=== PATIENT | male | born 1975 | race African-American/Black ===

== ENCOUNTER 2019-04-08 07:30 | Emergency (ER) | payer OTHER ==
[2019-04-08] MEDS ORDERED: CYCLOBENZAPRINE 10 MG TAB ONE (08:11)
[2019-04-08] MEDS ORDERED: KETOROLAC 30 MG/ML INJ ONE (08:11)
--- NOTE | 2019-04-08 08:19 | RAD REPORT ---
EXAM DESCRIPTION: CT - Stone Protocol - 04/08/2019 7:54 am CLINICAL HISTORY: Flank pain. right flank pain COMPARISON: No comparisons TECHNIQUE: Axial images were obtained without oral or IV contrast. Lack of contrast limits solid org an and vascular assessment. The [id number] spans the entirety of the system partially obscuring uppermost abdomen and lung bases. Coronal reformatted images were obtained and reviewed. All CT scans are performed using dose optimization technique as appropriate and may include automated exposure control or mA/KV adjustment according to patient size. FINDINGS: The lower lung [place] are clear. Imaged portions of the liver and spleen show no suspicious findings on non-contrast imaging. The panc reas and adrenal glands are normal. No pathologic lymphadenopathy in the abdomen or pelvis. Small punctate calculi are seen in the inferior calices of the right kidney. No hydronephrosis or ure ter stone on the right identified. Several left renal cysts are suspected, although assessment is mederos ited due to lack of contrast material. No significant left-sided renal calculus or hydronephrosis. No bowel obstruction, free air, free fluid or abscess. Normal appendix noted.Sigmoid diverticulosis c noni without diverticulitis. No significant bony abnormality. IMPRESSION: Punctate inferior right renal calculi. No hydronephrosis.
[2019-04-08 08:24] LABS: Absolute Lymphocytes (CBC) 2.1 K/uL (0.7-4.9); Absolute Monocytes 0.7 K/uL (0.1-1.3); Absolute Neutrophil 5.8 K/uL (1.8-8.0); Basophils % 0.7 % (0-1.3); Eosinophils % 1.3 % (0-4.4); Hematocrit 41.6 % (39.6-49.0); Lymphocytes % 23.8 % (15.3-44.8); MPV 7.7 fL (7.6-11.3); Monocytes % 7.8 % (3.3-12.3); RBC Red Blood Cell Count 4.27 M/uL (4.33-5.43)
[2019-04-08 08:37] LABS: ALT/SGPT 20 U/L (12-78); AST/SGOT 15 U/L (15-37); Albumin 3.6 g/dL (3.4-5.0); Alkaline Phosphatase 90 U/L (45-117); BUN Blood Urea Nitrogen 4 mg/dL (7-18); Bicarbonate 27 mmol/L (21-32); Bilirubin Direct < 0.1 mg/dL (0-0.2); Bilirubin Total 0.2 mg/dL (0.2-1.0); Glucose Level 96 mg/dL (74-106); Lipase 172 U/L (73-393); Potassium 3.7 mmol/L (3.5-5.1); Protein, Total 7.6 g/dL (6.4-8.2); Sodium Level 144 mmol/L (136-145)
[2019-04-08 08:39] LABS: Urine Amorphous Sediment 1+ /HPF (NONE SEEN); Urine Bacteria NONE SEEN /HPF (NONE SEEN); Urine Culture Reflex Order REFLEXED; Urine Mucus LIGHT /HPF (NONE SEEN); Urine RBC <5 /HPF (NONE SEEN)
[2019-04-08 08:40] LABS: Urine Blood NEGATIVE (NEG); Urine Glucose NEGATIVE (NEG); Urine Protein NEGATIVE (NEG)
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
--- NOTE | 2019-04-08 08:57 | ER ---
Nurse's Notes [facility] Name: Justo Jain Age: 44 yrs Sex: Male : 1975 Arrival Date: 04/08/2019 Time: 07:34 Bed 18 Private MD: Diagnosis: Nephrolithiasis;Muscle spasm of back Presentation: 04/08 07:40 Presenting complaint: Patient states: i have this back pain for a year now on and off hj but this time its getting worse, denies blood in urine, denies burning urination, denies F/C; denies N/V; reports cough, denies SOB;. 07:40 Transition of care: patient was not received from another setting of care. Onset of hj symptoms was April 08, 2019. Risk Assessment: Do you want to hurt yourself or someone else? Patient reports no desire to harm self or others. Initial Sepsis Screen: Does the patient meet any 2 criteria? No. Patient's initial sepsis screen is negative. Does the patient have a suspected source of infection? No. Patient's initial sepsis screen is negative. Care prior to arrival: None. 07:40 Method Of Arrival: Ambulatory 07:40 Acuity: TRAMAINE 3 hj Triage Assessment: 07:40 General: Appears in no apparent distress. uncomfortable, Behavior is calm, cooperative, hj appropriate for age. Pain: Complains of pain in right mid back Pain radiates to abdomen. 07:40 EENT: No signs and/or symptoms were reported regarding the EENT system. Neuro: Level of hj Consciousness is awake, alert, obeys commands, Oriented to person, place, time, situation, Appropriate for age. Cardiovascular: Denies chest pain, Capillary refill < 3 seconds Patient's skin is warm and dry. Respiratory: Reports cough that is Airway is patent Respiratory effort is even, unlabored, Respiratory pattern is regular, symmetrical, Breath sounds are clear. GI: No signs and/or symptoms were reported involving the gastrointestinal system. : No signs and/or symptoms were reported regarding the genitourinary system. Derm: No signs and/or symptoms reported regarding the dermatologic system. Musculoskeletal: Reports pain in right mid back. Historical: - Allergies: 07:40 No Known Allergies; hj - Home Meds: 07:40 venlafaxine oral oral [Active]; Risperdal Oral [Active]; Trazodone Oral [Active]; hj - PMHx: 07:40 R sided paralysis; hj - PSHx: 07:40 neck; hj - Immunization history:: Adult Immunizations up to date. - Social history:: Smoking status: Patient/guardian denies using tobacco, Patient/guardian denies using alcohol. - Family history:: not pertinent. - Ebola Screening: : Patient negative for fever greater than or equal to 101.5 degrees Fahrenheit, and additional compatible Ebola Virus Disease symptoms Patient denies exposure to infectious person Patient denies travel to an Ebola-affected area in the 21 days before illness onset. - Hospitalizations: : No recent hospitalization is reported. Screenin:40 Abuse screen: Denies threats or abuse. Denies injuries from another. Nutritional hj screening: No deficits noted. Tuberculosis screening: No symptoms or risk factors identified. 07:40 Fall Risk Secondary diagnosis (15 points) impaired mobility. hj Assessment: 07:40 Reassessment: see triage for assessment;. hj 07:50 Reassessment: Patient and/or family updated on plan of care and expected duration. Pain hj level reassessed. Patient is alert, oriented x 3, equal unlabored respirations, skin warm/dry/pink. wheeled to CT for CT stone protocol;. 09:20 Reassessment: pt for D/C; instructions given;. hj Vital Signs: 07:40 BP 139 / 97; Pulse 66; Resp 18; Temp 97.9(O); Pulse Ox 97% on R/A; Weight 79.38 kg; hj Height 5 ft. 10 in. (177.80 cm); Pain 8/10; 08:30 BP 138 / 92; Pulse 68; Resp 18; Pulse Ox 100% on R/A; hj 09:21 BP 135 / 90; Pulse 65; Resp 18; Pulse Ox 100% on R/A; hj 07:40 Body Mass Index 25.11 (79.38 kg, 177.80 cm) ED Course: 07:34 Patient arrived in ED. mr 07:34 Star Huntley MD is Attending Physician. rn 07:40 Arm band placed on left wrist. hj 07:40 Patient has correct armband on for positive identification. Placed in gown. Bed in low hj position. Call light in reach. Side rails up X2. 07:43 Kyler, Giovani, RN is Primary Nurse. hj 07:[address] via wheelchair. vm2 07:47 Triage completed. hj 07:53 CT completed. Patient tolerated procedure well. Patient moved back from CT. 2 07:54 CT Stone Protocol In Process Unspecified. EDND 08:05 Initial lab(s) drawn, by me, sent to lab. Urine collected: clean catch specimen, chadd hj colored. Inserted saline lock: 22 gauge in left forearm, using aseptic technique. Blood collected. 09:20 No provider procedures requiring assistance completed. IV discontinued, intact, hj bleeding controlled, No redness/swelling at site. Pressure dressing applied. Administered Medications: 07:45 Drug: Flexeril 10 mg Route: PO; hj 08:30 Follow up: Response: No adverse reaction; Pain is decreased 08:05 Drug: TORadol - Ketorolac 15 mg Route: IVP; Site: left forearm; hj 08:30 Follow up: Response: No adverse reaction; Pain is decreased Outcome: 08:57 Discharge ordered by . rn 09:20 Discharged to home ambulatory. 09:20 Condition: stable 09:20 Discharge instructions given to patient, Instructed on discharge instructions, follow up and referral plans. medication usage, Demonstrated understanding of instructions, follow-up care, medications, Prescriptions given X 1. 09:22 Patient left the ED. Signatures: Dispatcher [employer] Kassidy Medeiros Roman, MD MD rn Joaquin, Henry, RN RN hj McGuire, [facility]
== END 2019-04-08 09:22 | disposition home or self-care (01) ==
LOC: ER 07:30
DX: N20.0 Calculus of kidney (principal); M62.830 Muscle spasm of back
CPT/HCPCS: 36415; 74176; 76377; 80048; 80076; 81003; 81015; 83690; 85025; 87086; 87088

== ENCOUNTER 2019-11-27 11:15 | Emergency (ER) | payer OTHER ==
--- OUTSIDE RECORDS SUMMARY | 2019-11-27 11:17 | XMS REPORT ---
:1975 [facility] Address [address] [place] [address] Care Team Providers Name Role Phone Unavailable Unavailable Unavailable Problems This patient has no known problems. Allergies, Adverse Reactions, Alerts This patient has no known allergies or adverse reactions. Medications This patient has no known medications. Results Test Description Test Time Test Comments Text Results Atomic Results Result Comments KNEE 3 VIEWS 2018-07-22 07:36:00 [place] [id number] IMAGING REPORTPatient Name: Cleo DOUGHERTY of Service: [id number]: 43 Sex: M Order #: [id number] Room: ERSDOB: 1975 X-Ray Number: [id number] Record Number: [id number] Hospital Number: [id number] Physician: Erna GUIDO Physician: Florina ENCISO knee.History: Pain.Technique: 3 views the right knee were reviewed.Findings:The right knee joint is intact. There is no fracture or bony malalignment.There is a significant sized joint effusion noted.Impression:Large right knee joint effusion.Electronically Signed By: Israel Ndiaye M.D., 07/22/2018 7:33 AMLegally authenticated by OSCAR Tolbert 2018-07-22 07:33:53 ABDOMEN 1 VIEW 2018-07-22 07:35:00 [place] [id number] IMAGING REPORTPatient Name: Cleo DOUGHERTY of Service: [id number]: 43 Sex: M Order #: [id number] Room: ERSDOB: 1975 X-Ray Number: [id number] Record Number: [id number] Hospital Number: [id number] Physician: Erna GUIDO Physician: KAYLA ENCISOUB:History: Abdomen pain.Technique: 2 AP abdomen and pelvis projection obtained supine.Findings:The bowel gas pattern is nonobstructive.There are scattered fecal material throughout the colon.There is no evidence of free air.The osseous structures and soft tissues are unremarkable.There are no suspicious or abnormal calcification seen.Impression:Unremarkable abdomen projections.Electronically Signed By: Israel Ndiaye M.D., 07/22/2018 7:32 AMLegally authenticated by OSCAR Tolbert 2018-07-22 07:32:58 ELBOW COMPLETE 2018-07-22 07:35:[address] [id number] IMAGING REPORTPatient Name: Cleo DOUGHERTY of Service: [id number]: 43 Sex: M Order #: [id number] Room: [facility]: 1975 X-Ray Number: [id number] Record Number: [id number] Hospital Number: [id number] Physician: Erna GUIDO Physician: Florina ENCISO elbow.History: Pain.Technique: 4 views of right elbow were reviewed.Findings:The right elbow joint is intact without fracture. There is normalalignment. There is no obvious elbow joint effusion seen.Impression:Unremarkable right elbow views.Electronically Signed By: Israel Ndiaye M.D., 07/22/2018 7:33 AMLegally authenticated by OSCAR Tolbert 2018-07-22 07:33:23
--- NOTE | 2019-11-27 12:23 | RAD REPORT ---
EXAM DESCRIPTION: USExtremity Venous Uni Ltd11/27/2019 12:13 pm CLINICAL HISTORY: left leg pain and swelling. COMPARISON: None. FINDINGS: Left common femoral, superficial femoral, popliteal and posterior tibial veins are compre ssible and demonstrate augmentation. Doppler demonstrates good flow. IMPRESSION: No evidence of deep venous thrombosis involving the left lower extremity.
[2019-11-27 12:37] LABS: Absolute Lymphocytes (CBC) 2.6 K/uL (0.7-4.9); Hematocrit 40.2 % (39.6-49.0); Lymphocytes % 38.1 % (15.3-44.8); MPV 7.7 fL (7.6-11.3); RBC Red Blood Cell Count 4.31 M/uL (4.33-5.43)
[2019-11-27 12:45] LABS: Protime INR 1.04
[2019-11-27 12:57] LABS: ALT/SGPT 36 U/L (12-78); AST/SGOT 21 U/L (15-37); Albumin 3.8 g/dL (3.4-5.0); Alkaline Phosphatase 104 U/L (45-117); BUN Blood Urea Nitrogen 6 mg/dL (7-18); Bicarbonate 26 mmol/L (21-32); Bilirubin Direct < 0.1 mg/dL (0-0.2); Bilirubin Total 0.3 mg/dL (0.2-1.0); Glucose Level 80 mg/dL (74-106); Magnesium 2.4 mg/dL (1.8-2.4); NT PRO-BNP 110 pg/mL (<125); Potassium 3.8 mmol/L (3.5-5.1); Protein, Total 8.1 g/dL (6.4-8.2); Sodium Level 141 mmol/L (136-145); Troponin (Emerg Dept Use Only) < 0.02 ng/mL (0.0-0.045)
[2019-11-27] MEDS ORDERED: KETOROLAC 30 MG/ML INJ ONE (13:26)
[2019-11-27] MEDS ORDERED: lisinopriL 20 MG TAB ONE (13:26)
--- NOTE | 2019-11-27 13:47 | EKG ---
Test Date: 2019-11-27 Test Time: 11:38:14 Law Office Assistant: CARLA MEASUREMENT RESULTS: Intervals: Rate: 74 LA: 152 QRSD: 88 QT: 378 QTc: 419 [place]: P: 73 LA: 152 QRS: 66 T: 47 INTERPRETIVE STATEMENTS: Normal sinus rhythm Normal ECG No previous ECG available for comparison Electronically Signed On 11-27-19 13:46:44 GEAR MACHINIST by Paul Briceno
--- NOTE | 2019-11-27 14:25 | RAD REPORT ---
EXAM DESCRIPTION: RAD - Chest Single View - 11/27/2019 2:02 pm CLINICAL HISTORY: Lower extremity swelling, hypertension, abnormal EKG COMPARISON: None. TECHNIQUE: AP portable chest image was obtained 1244 hours . FINDINGS: Minimal stranding at the left lung base. Patient has a mild interstitial pattern as a base line. No consolidation or mass. No significant failure or volume overload. Heart and vasculature are normal. No measurable pleural effusion and no pneumothorax. No acute bony abnormality seen. No acute aortic findings suspected. IMPRESSION: Minimal interstitial stranding changes suspected to be baseline. No mass, consolidation or significant failure finding.
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
--- NOTE | 2019-11-27 14:34 | EDPHYS ---
Physician Documentation [facility] Name: Justo Jain Age: 44 yrs Sex: Male : 1975 Arrival Date: 11/27/2019 Time: 11:18 Bed 26 Private MD: ED Physician Atul Soto HPI: 11/27 19:06 This 44 yrs old Black Male presents to ER via Ambulatory with complaints of Leg Pain. kdr 19:06 The patient presents with pain, that is acute, tenderness, Left posterior thigh. The kdr complaints affect the left hamstring. Context: The problem was sustained at home, resulted from an unknown cause, the patient can fully bear weight, the patient is able to ambulate, with mild difficulty, Problem is a result from a previous injury: No. 19:08 Onset: The symptoms/episode began/occurred gradually, 1 week(s) ago. Modifying factors: kdr The symptoms are alleviated by nothing. the symptoms are aggravated by movement, weight bearing. Associated signs and symptoms: Pertinent positives: HTN, left leg pain. Treatment prior to arrival includes: over the counter medications, NSAIDS. Severity of symptoms: At their worst the symptoms were mild, in the emergency department the symptoms are unchanged. The patient has not experienced similar symptoms in the past. The patient has not recently seen a physician. Historical: - Allergies: :26 No Known Allergies; ss - Home Meds: 11:26 venlafaxine Oral [Active]; trazodone 100 mg oral tab 2 tabs nightly [Active]; Risperdal ss 3 mg oral tab 1 tab nightly [Active]; - PMHx: 11:26 Depression; R sided paralysis; ss - PSHx: 11:26 Neck; ss - Immunization history:: Flu vaccine is not up to date. - Social history:: Smoking status: Patient uses tobacco products, denies chronic smoking, but will smoke occasionally. - Ebola Screening: : Patient denies exposure to infectious person Patient denies travel to an Ebola-affected area in the 21 days before illness onset. ROS: 19:08 Constitutional: Negative for fever, chills, and weight loss, Eyes: Negative for injury, kdr pain, redness, and discharge, ENT: Negative for injury, pain, and discharge, Neck: Negative for injury, pain, and swelling, Cardiovascular: Negative for chest pain, palpitations, and edema, Respiratory: Negative for shortness of breath, cough, wheezing, and pleuritic chest pain, Abdomen/GI: Negative for abdominal pain, nausea, vomiting, diarrhea, and constipation, Back: Negative for injury and pain, : Negative for injury, bleeding, discharge, and swelling, Skin: Negative for injury, rash, and discoloration, Neuro: Negative for headache, weakness, numbness, tingling, and seizure activity. Psych: Negative for depression, anxiety, suicide ideation, homicidal ideation, and hallucinations, Allergy/Immunology: Negative for hives, rash, and allergies, Endocrine: Negative for neck swelling, polydipsia, polyuria, polyphagia, and marked weight changes, Hematologic/Lymphatic: Negative for swollen nodes, abnormal bleeding, and unusual bruising. 19:08 MS/extremity: Positive for pain, tenderness, of the left hamstring. Exam: 11:46 ECG was reviewed by the Attending Physician. kdr 19:08 Constitutional: This is a well developed, well nourished patient who is awake, alert, kdr and in no acute distress. Head/Face: Normocephalic, atraumatic. Eyes: Pupils equal round and reactive to light, extra-ocular motions intact. Lids and lashes normal. Conjunctiva and sclera are non-icteric and not injected. Cornea within normal limits. Periorbital areas with no swelling, redness, or edema. Neck: Trachea midline, no thyromegaly or masses palpated, and no cervical lymphadenopathy. Supple, full range of motion without nuchal rigidity, or vertebral point tenderness. No Meningismus. Chest/axilla: Normal chest wall appearance and motion. Nontender with no deformity. No lesions are appreciated. Cardiovascular: Regular rate and rhythm with a normal S1 and S2. No gallops, murmurs, or rubs. Normal PMI, no JVD. No pulse deficits. Respiratory: Lungs have equal breath sounds bilaterally, clear to auscultation and percussion. No rales, rhonchi or wheezes noted. No increased work of breathing, no retractions or nasal flaring. Abdomen/GI: Soft, non-tender, with normal bowel sounds. No distension or tympany. No guarding or rebound. No evidence of tenderness throughout. Back: No spinal tenderness. No costovertebral tenderness. Full range of motion. Skin: Warm, dry with normal turgor. Normal color with no rashes, no lesions, and no evidence of cellulitis. MS/ Extremity: Pulses equal, no cyanosis. Neurovascular intact. Full, normal range of motion. Neuro: Awake and alert, GCS 15, oriented to person, place, time, and situation. Cranial nerves II-XII grossly intact. Motor strength 5/5 in all extremities. Sensory grossly intact. Cerebellar exam normal. Normal gait. Psych: Awake, alert, with orientation to person, place and time. Behavior, mood, and affect are within normal limits. Vital Signs: 11:26 BP 164 / 110; Pulse 80; Resp 16; Temp 97.4(TE); Pulse Ox 98% on R/A; Weight 83.91 kg; ss Height 5 ft. 11 in. (180.34 cm); Pain 5/10; 12:35 BP 166 / 115; Pulse 73; Resp 18; Pulse Ox 99% on R/A; Pain 5/10; em 13:21 BP 153 / 112; Pulse 73; Resp 17 S; Pulse Ox 99% on R/A; ca1 14:30 BP 158 / 122; Pulse 68; Resp 17 S; Pulse Ox 100% ; ca1 11:26 Body Mass Index 25.80 (83.91 kg, 180.34 cm) ss MDM: 14:31 Patient medically screened. kdr 19:08 Data reviewed: vital signs, nurses notes, lab test result(s), radiologic studies. kdr Counseling: I had a detailed discussion with the patient and/or guardian regarding: the historical points, exam findings, and any diagnostic results supporting the discharge/admit diagnosis, lab results, radiology results, the need for outpatient follow up. ED course: The patient improved with the interventions given and was happy with the plan for discharge and follow-up. 11/27 11:43 Order name: Basic Metabolic Panel; Complete Time: 13:18 kdr 11/27 11:43 Order name: CBC with Diff; Complete Time: 12:56 kdr 11/27 11:43 Order name: LFT's; Complete Time: 13:18 kdr 11/27 11:43 Order name: Magnesium; Complete Time: 13:18 kdr 11/27 11:43 Order name: NT PRO-BNP; Complete Time: 13:18 kdr 11/27 11:43 Order name: PT-INR; Complete Time: 12:56 kdr 11/27 11:43 Order name: Troponin (emerg Dept Use Only); Complete Time: 13:18 kdr 11/27 11:43 Order name: XRAY Chest (1 view) kdr 11/27 11:43 Order name: EKG; Complete Time: 11:44 kdr 11/27 11:43 Order name: Cardiac monitoring; Complete Time: 11:46 kdr 11/27 11:43 Order name: EKG - Nurse/Tech; Complete Time: 11:46 kdr 11/27 11:44 Order name: US Extremity Venous Unilateral Ltd; Complete Time: 12:56 kdr 11/27 11:43 Order name: IV Saline Lock; Complete Time: 11:46 kdr 11/27 11:43 Order name: Labs collected and sent; Complete Time: 11:47 kdr 11/27 11:43 Order name: O2 Per Protocol; Complete Time: 11:47 kdr 11/27 11:43 Order name: O2 Sat Monitoring; Complete Time: 11:47 kdr EC:46 Rate is 74 beats/min. Rhythm is regular, Normal Sinus Rhythm with No ectopy. QRS [place] kdr is Normal. MO interval is normal. QRS interval is normal. QT interval is normal. Clinical impression: Normal ECG. Administered Medications: 13:29 Drug: Lisinopril 20 mg Route: PO; em 14:10 Follow up: Response: No adverse reaction; Blood pressure is unchanged em 13:29 Drug: TORadol - Ketorolac 15 mg Route: IVP; Site: right antecubital; iw 14:10 Follow up: Response: No adverse reaction; Marked relief of symptoms; Pain is decreased em Disposition: 11/27/19 14:31 Discharged to Home. Impression: Strain of muscle, fascia and tendon of the posterior muscle group at thigh level, left thigh. - Condition is Stable. - Discharge Instructions: Hypertension, Musculoskeletal Pain. - Prescriptions for ketorolac 10 mg Oral tablet - take 1 tablet by ORAL route every 4-6 hours not to exceed 40 mg in 24hrs; 16 tablet. Lisinopril 20 mg Oral Tablet - take 1 tablet by ORAL route once daily; 20 tablet. - Medication Reconciliation Form, Thank You Letter form. - Follow up: Private Physician; When: 2 - 3 days; Reason: If symptoms return, Further diagnostic work-up, Recheck today's complaints, Continuance of care, Re-evaluation by your physician. - Problem is new. - Symptoms have improved. Signatures: Dispatcher [employer] EDAtul Stern MD MD kdr Munoz, Edgar, RELAY SHOP TESTER RELAY SHOP TESTER em Bernarda Cook RN RN iw Maritza Ramirez RN RN ss Corrections: (The following items were deleted from the chart) 15:07 14:31 11/27/2019 14:31 Discharged to Home. Impression: Strain of muscle, fascia and em tendon of the posterior muscle group at thigh level, left thigh. Condition is Stable. Forms are Medication Reconciliation Form, Thank You Letter, Antibiotic Education, Prescription Opioid Use. Follow up: Private Physician; When: 2 - 3 days; Reason: If symptoms return, Further diagnostic work-up, Recheck today's complaints, Continuance of care, Re-evaluation by your physician. Problem is new. Symptoms have improved. kdr
[2019-11-27 16:08] VITALS: TEMP 97.4
[2019-11-27 16:12] VITALS: BP 158/122; O2SAT 100
== END 2019-11-27 15:07 | disposition home or self-care (01) ==
LOC: ER 11:15
DX: S76.312A Strain of muscle, fascia and tendon of the posterior muscle group at thigh level, left thigh, initial encounter (principal); F32.9 Major depressive disorder, single episode, unspecified; Z72.0 Tobacco use
CPT/HCPCS: 36415; 71045; 80048; 80076; 83735; 83880; 84484; 85025; 85610; 93005; 93971; 96374; 99284

== ENCOUNTER 2019-12-29 16:58 | Observation (INO) | payer OTHER ==
--- OUTSIDE RECORDS SUMMARY | 2019-12-29 17:00 | XMS REPORT ---
:1975 [facility] [address] [place] [address] Care Team Providers Name Role Phone Unavailable Unavailable Unavailable Problems This patient has no known problems. Allergies, Adverse Reactions, Alerts This patient has no known allergies or adverse reactions. Medications This patient has no known medications. Results Test Description Test Time Test Comments Text Results Atomic Results Result Comments KNEE 3 VIEWS 2018-07-22 07:36:00 [place] [id number] IMAGING REPORTPatient Name: Cleo DOUGHERTY of Service: [id number]: 43 Sex: M Order #: [id number] Room: ERSDOB: 1975 X-Ray Number: [id number] Record Number: [id number] Hospital Number: [id number] Physician: Erna GUIDO Physician: Florina ENCISO knee.History: Pain.Technique: 3 views the right knee were reviewed.Findings:The right knee joint is intact. There is no fracture or bony malalignment.There is a significant sized joint effusion noted.Impression:Large right knee joint effusion.Electronically Signed By: Israel Ndiaye M.D., 07/22/2018 7:33 AMLegally authenticated by OCSAR Tolbert 2018-07-22 07:33:53 ABDOMEN 1 VIEW 2018-07-22 07:35:00 [place] [id number] IMAGING REPORTPatient Name: Cleo DOUGHERTY of Service: [id number]: 43 Sex: M Order #: [id number] Room: ERSDOB: 1975 X-Ray Number: [id number] Record Number: [id number] Hospital Number: [id number] Physician: Erna GUIDO Physician: KAYLA ENCISOUB:History: Abdomen [...] Tolbert 2018-07-22 07:32:58 ELBOW COMPLETE 2018-07-22 07:35:[address] [id number] IMAGING REPORTPatient Name: Cleo DOUGHERTY of Service: [id number]: 43 Sex: M Order #: [id number] Room: [facility]: 1975 X-Ray Number: [id number] Record Number: [id number] Hospital Number: [id number] Physician: Erna GUIDO Physician: Florina ENCISO elbow.History: Pain.Technique: 4 views of right elbow were reviewed.Findings:The right elbow joint is intact without fracture. There is normalalignment. There is no obvious elbow joint effusion seen.Impression:Unremarkable right elbow views.Electronically Signed By: Israel Ndiaye M.D., 07/22/2018 7:33 AMLegally authenticated by OSCAR Tolbert 2018-07-22 07:33:23
[2019-12-29] MEDS ORDERED: NA CHLORIDE 0.9% 1,000 ML ONE (17:16)
[2019-12-29 18:03] LABS: Absolute Lymphocytes (CBC) 1.6 K/uL (0.7-4.9); Basophils % 0.4 % (0-1.3); Hematocrit 40.6 % (39.6-49.0); MPV 8.4 fL (7.6-11.3); RBC Red Blood Cell Count 4.31 M/uL (4.33-5.43)
[2019-12-29 18:08] LABS: Protime INR 1.14
--- NOTE | 2019-12-29 18:30 | ER ---
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 Transition of care: patient was not received from another setting of care. Onset of symptoms was December 29, 2019 at 14:00. Risk Assessment: Do you want to hurt yourself or someone else? Patient reports desire/thoughts of hurting themselves or someone else. Provider notified. Initial Sepsis Screen: Does the patient meet any 2 criteria? No. Patient's initial sepsis screen is negative. Does the patient have a suspected source of infection? No. Patient's initial sepsis screen is negative. Care prior to arrival: None. 16:55 Method Of Arrival: Wheelchair bp 16:55 Acuity: TRAMAINE 2 bp Triage Assessment: 16:58 General: Appears in no apparent distress. comfortable, Behavior is cooperative, bp appropriate for age, drowsy. Pain: Denies pain. EENT: No deficits noted. Neuro: Level of Consciousness is awake, obeys commands, lethargic, Oriented to person, place, time, situation, Appropriate for age. Cardiovascular: No deficits noted. Respiratory: No deficits noted. GI: No signs and/or symptoms were reported involving the gastrointestinal system. : No signs and/or symptoms were reported regarding the genitourinary system. Derm: No deficits noted. Musculoskeletal: No deficits noted. Historical: - Allergies: 16:58 No Known Allergies; bp - Home Meds: 16:58 Risperdal 3 mg Oral tab 1 tab nightly [Active]; trazodone 100 mg Oral tab 2 tabs bp nightly [Active]; venlafaxine Oral [Active]; - PMHx: 16:58 Depression; R sided paralysis; bp - Immunization history:: Adult Immunizations unknown. - Coronavirus screen:: The patient has NOT traveled to [place], [place], or [place] in the past 14 days. The patient has NOT had contact with known/suspected case of Coronavirus? Proceed with normal triage procedures. - Social history:: Smoking status: unknown. - Ebola Screening: : No symptoms or risks identified at this time. Screenin:59 Abuse screen: Denies threats or abuse. Denies injuries from another. Nutritional bp screening: No deficits noted. Tuberculosis screening: No symptoms or risk factors identified. Fall Risk None identified. Assessment: 16:59 General: SEE TRIAGE NOTE. bp 17:36 Reassessment: PT SEEN BY HOSPITALIST. DISPO PENDING. bp 18:35 Reassessment: ICU ADMIT IN PROCESS. PER MD, PT NOT STABLE FOR ARRIVAL. bp 19:14 General: Appears in no apparent distress. comfortable, Behavior is calm, cooperative, jd3 appropriate for age, drowsy. 19:14 Pain: Denies pain. Neuro: Level of Consciousness is awake, alert, obeys commands, jd3 Oriented to person, place, time, situation. Cardiovascular: Denies chest pain, Capillary refill < 3 seconds Patient's skin is warm and dry. Respiratory: Airway is patent Respiratory effort is even, unlabored, Respiratory pattern is regular, symmetrical. GI: No signs and/or symptoms were reported involving the gastrointestinal system. Abdomen is round non-distended. : No signs and/or symptoms were reported regarding the genitourinary system. EENT: No signs and/or symptoms were reported regarding the EENT system. Derm: Skin is intact, Skin is dry, Skin is normal, Skin temperature is warm. Musculoskeletal: Circulation, motion, and sensation intact. Range of motion: intact in all extremities. 20:09 Reassessment: Patient appears in no apparent distress at this time. Patient and/or jd3 family updated on plan of care and expected duration. Pain level reassessed. Patient is alert, oriented x 3, equal unlabored respirations, skin warm/dry/pink. pt reminded of need for a urine sample. pt pulled IV out. site cleaned. no redness or swelling noted. 21:29 Reassessment: Patient appears in no apparent distress at this time. pt is aaox4, states fc he feels the need to vomit. pt educated with injestion of med vomiting is not a bad thing. no new medications ordered. 22:30 Reassessment: Patient appears in no apparent distress at this time. Patient and/or jd3 family updated on plan of care and expected duration. Pain level reassessed. Patient is alert, oriented x 3, equal unlabored respirations, skin warm/dry/pink. 23:45 Reassessment: Patient appears in no apparent distress at this time. Patient and/or jd3 family updated on plan of care and expected duration. Pain level reassessed. Patient is alert, oriented x 3, equal unlabored respirations, skin warm/dry/pink. pt to ICU with a nurse. Overdose: 17:00 Patient took \R\90 TABS 100 MG TRAZODONE. Overdose occurred 3-4 hours ago. bp Vital Signs: 17:00 BP 120 / 74; Pulse 95; Resp 15; Temp 98; Pulse Ox 99% ; Weight 79.38 kg; Height 5 ft. bp 10 in. (177.80 cm); 17:35 BP 96 / 66; Pulse 102; Resp 22; Pulse Ox 98% ; bp 18:30 BP 126 / 66; Pulse 86; Resp 16; Pulse Ox 100% on R/A; Pain 0/10; em1 18:35 BP 102 / 64; Pulse 88; Resp 17; Pulse Ox 100% ; bp 18:59 BP 123 / 81; Pulse 104; Resp 19; Pulse Ox 98% on R/A; Pain 0/10; em1 20:09 BP 147 / 85 LA Supine (auto/reg); Pulse 96 MON; Resp 17 S; Pulse Ox 99% on R/A; ds4 21:57 BP 99 / 69 LA Sitting (auto/reg); Pulse 102 MON; Resp 19; Pulse Ox 99% on R/A; ds4 17:00 Body Mass Index 25.11 (79.38 kg, 177.80 cm) bp ED Course: 16:55 Holland Almonte, RN is Primary Nurse. bp 16:57 Triage completed. bp 16:58 Arm band placed on. bp 16:59 Patient arrived in ED. em 16:59 Patient has correct armband on for positive identification. Placed in gown. Bed in low bp position. Call light in reach. Side rails up X2. coroner forensic technician on. Pulse ox on. NIBP on. 17:00 Atul Soto MD is Attending Physician. kdr 17:14 Inserted saline lock: 22 gauge in left hand, using aseptic technique. bp 17:36 Seizure precautions initiated. bp 18:26 attempted transfer to [facility], pt denied at this time due to no beds, per Christy Tejada. 18:28 Carlton Howard DO is Hospitalizing Provider. kdr 20:09 IV was discontinued by the patient. jd3 22:10 Inserted saline lock: 20 gauge in left forearm, using aseptic technique. ds4 23:45 No provider procedures requiring assistance completed. Patient admitted, IV remains in jd3 place. Administered Medications: 17:17 Drug: NS 0.9% 1000 ml Route: IV; Rate: 1 bolus; Site: left hand; bp Outcome: 18:29 Decision to Hospitalize by Provider. kdr 23:45 Patient left the ED. jd3 23:45 Admitted to ICU accompanied by nurse, accompanied by tech, via stretcher, on monitor, jd3 with chart, Report called to bedside report given to ICU nurse 23:45 Condition: stable 23:45 Instructed on the need for admit, Demonstrated understanding of instructions. Signatures: Nataly Lopez Kevin, MD MD kdr Chretien, Felicia, RN RN Ki Dueñas, Isaiah Min RN emCollin Benz ds4 Pilo Knight RN RN jd3 Peltier, Brian, RN RN bp Corrections: (The following items were deleted from the chart) 20:11 20:09 Reassessment: Patient appears in no apparent distress at this time. Patient jd3 and/or family updated on plan of care and expected duration. Pain level reassessed. Patient is alert, oriented x 3, equal unlabored respirations, skin warm/dry/pink. jd3 12/30 00:51 00:11 Patient left the ED. jd3 jd3
--- NOTE | 2019-12-29 18:30 | EDPHYS ---
Physician Documentation [facility] Name: Justo Jain Age: 44 yrs Sex: Male : 1975 Arrival Date: 12/29/2019 Time: 16:59 Bed 3 Private MD: ED Physician Atul Soto HPI: 12/29 18:19 This 44 yrs old Black Male presents to ER via Wheelchair with complaints of Overdose. kdr 18:19 The patient presents to the emergency department after a known overdose, that was kdr intentional. Context: Method: the patient has a confirmed or suspected ingestion, Trazadone, Time: at 14:00, Extent: severe ingestion, the original prescription was for 90 pills/capsules, the strength of the pills/capsules is 100 mg(s), the OD/poisoning occurred at at home, and was witnessed by family, Psychiatric history: the patient has a known psychiatric disorder. Associated signs and symptoms: Pertinent positives: decreased level of consciousness, Pertinent negatives: anxiety, apnea, auditory hallucinations, diaphoresis, diarrhea, dizziness, incontinence. Severity of symptoms: At their worst the symptoms were mild just prior to arrival, in the emergency department the symptoms are unchanged. It is unknown whether or not the patient has had similar symptoms in the past. It is unknown whether or not the patient has recently seen a physician. The patient states that his situation in "life" is brought in to this point. He has a history of depression and ingested his own trazadone. Historical: - Allergies: 16:58 No Known Allergies; bp - Home Meds: 16:58 Risperdal 3 mg Oral tab 1 tab nightly [Active]; trazodone 100 mg Oral tab 2 tabs bp nightly [Active]; venlafaxine Oral [Active]; - PMHx: 16:58 Depression; R sided paralysis; bp - Immunization history:: Adult Immunizations unknown. - Coronavirus screen:: The patient has NOT traveled to [place], [place], or [place] in the past 14 days. The patient has NOT had contact with known/suspected case of Coronavirus? Proceed with normal triage procedures. - Social history:: Smoking status: unknown. - Ebola Screening: : No symptoms or risks identified at this time. ROS: 18:19 Constitutional: Negative for fever, chills, and weight loss, - the patinet is a poor kdr historian Eyes: Negative for injury, pain, redness, and discharge, Neck: Negative for injury, pain, and swelling, Cardiovascular: Negative for chest pain, palpitations, and edema, Respiratory: Negative for shortness of breath, cough, wheezing, and pleuritic chest pain, Abdomen/GI: Negative for abdominal pain, nausea, vomiting, diarrhea, and constipation, Back: Negative for injury and pain, : Negative for injury, bleeding, discharge, and swelling, MS/Extremity: Negative for injury and deformity, Skin: Negative for injury, rash, and discoloration, Psych: Negative for depression, anxiety, suicide ideation, homicidal ideation, and hallucinations, Allergy/Immunology: Negative for hives, rash, and allergies, Endocrine: Negative for neck swelling, polydipsia, polyuria, polyphagia, and marked weight changes, Hematologic/Lymphatic: Negative for swollen nodes, abnormal bleeding, and unusual bruising. 18:19 Neuro: Positive for altered mental status, Negative for dizziness, gait disturbance, headache, hearing loss, numbness, seizure activity, speech changes, syncope, near syncope, tinnitus, tremor, visual changes, weakness. Exam: 18:19 Constitutional: This is a well developed, well nourished patient who is somnolent but kdr in no acute distress. Head/Face: Normocephalic, atraumatic. Eyes: Pupils equal round and reactive to light, extra-ocular motions intact. Lids and lashes normal. Conjunctiva and sclera are non-icteric and not injected. Cornea within normal limits. Periorbital areas with no swelling, redness, or edema. Neck: Trachea midline, no thyromegaly or masses palpated, and no cervical lymphadenopathy. Supple, full range of motion without nuchal rigidity, or vertebral point tenderness. No Meningismus. Chest/axilla: Normal chest wall appearance and motion. Nontender with no deformity. No lesions are appreciated. Cardiovascular: Regular rate and rhythm with a normal S1 and S2. No gallops, murmurs, or rubs. Normal PMI, no JVD. No pulse deficits. Respiratory: Lungs have equal breath sounds bilaterally, clear to auscultation and percussion. No rales, rhonchi or wheezes noted. No increased work of breathing, no retractions or nasal flaring. Abdomen/GI: Soft, non-tender, with normal bowel sounds. No distension or tympany. No guarding or rebound. No evidence of tenderness throughout. Back: No spinal tenderness. No costovertebral tenderness. Full range of motion. Skin: Warm, dry with normal turgor. Normal color with no rashes, no lesions, and no evidence of cellulitis. MS/ Extremity: Pulses equal, no cyanosis. Neurovascular intact. Full, normal range of motion. 18:19 Neuro: Orientation: appropriate for stated age, Mentation: able to follow commands, slow to respond. 18:19 Psych: Behavior/mood is cooperative, depressed, inappropriate for age, Affect is flat, Oriented to person, place, time. Vital Signs: 17:00 BP 120 / 74; Pulse 95; Resp 15; Temp 98; Pulse Ox 99% ; Weight 79.38 kg; Height 5 ft. bp 10 in. (177.80 cm); 17:35 BP 96 / 66; Pulse 102; Resp 22; Pulse Ox 98% ; bp 18:30 BP 126 / 66; Pulse 86; Resp 16; Pulse Ox 100% on R/A; Pain 0/10; em1 18:35 BP 102 / 64; Pulse 88; Resp 17; Pulse Ox 100% ; bp 18:59 BP 123 / 81; Pulse 104; Resp 19; Pulse Ox 98% on R/A; Pain 0/10; em1 20:09 BP 147 / 85 LA Supine (auto/reg); Pulse 96 MON; Resp 17 S; Pulse Ox 99% on R/A; ds4 21:57 BP 99 / 69 LA Sitting (auto/reg); Pulse 102 MON; Resp 19; Pulse Ox 99% on R/A; ds4 17:00 Body Mass Index 25.11 (79.38 kg, 177.80 cm) bp MDM: 18:19 Data reviewed: vital signs, nurses notes, lab test result(s), radiologic studies. kdr Counseling: I had a detailed discussion with the patient and/or guardian regarding: the historical points, exam findings, and any diagnostic results supporting the discharge/admit diagnosis, lab results, radiology results, the need for further work-up and treatment in the hospital. Physician consultation: Carlton Howard DO. 18:29 Patient medically screened. kdr 12/29 17:09 Order name: Acetaminophen kdr 12/29 17:09 Order name: Basic Metabolic Panel kdr 12/29 17:09 Order name: CBC with Diff kdr 02 17:09 Order name: ETOH Level kdr 12/29 17:09 Order name: Hepatic Function kdr 12/29 17:09 Order name: PT-INR kdr 12/29 17:09 Order name: Ptt, Activated kdr 12/29 17:09 Order name: Salicylate kdr 02 17:09 Order name: Urine Drug Screen kdr 12/29 17:09 Order name: EKG; Complete Time: 17: kdr 12/29 17: Order name: EKG - Nurse/Tech; Complete Time: 17:19 kdr 12/29 17: Order name: IV Saline Lock; Complete Time: 17: kdr 12/29 17: Order name: Labs collected and sent; Complete Time: : kdr Administered Medications: 17: Drug: NS 0.9% 1000 ml Route: IV; Rate: 1 bolus; Site: left hand; bp Disposition: 12/29/19 18:29 Hospitalization ordered by Carlton Howard for Inpatient Admission. Preliminary diagnosis is Trazadone Overdose, Suicidal Attempt/Ideation. - Bed requested for Intensive Care Unit. - Status is Inpatient Admission. jd3 - Condition is Serious. - Problem is new. - Symptoms are unchanged. Signatures: Dispatcher [employer] EDMS Atul Soto MD MD [facility] Ilsa Silveira RN RN Pilo Knight RN RN j Holland Almonte RN RN bp Corrections: (The following items were deleted from the chart) 23:23 18:29 Hospitalization Ordered by Carlton Howard DO for Inpatient Admission. Preliminary fc diagnosis is Trazadone Overdose, Suicidal Attempt/Ideation. Bed requested for Intensive Care Unit. Status is Inpatient Admission. Condition is Serious. Problem is new. Symptoms are unchanged. kdr 12/30 00:11 02 23:23 12/29/2019 18:29 Hospitalization Ordered by Carlton Howard DO for Inpatient jd3 Admission. Preliminary diagnosis is Trazadone Overdose, Suicidal Attempt/Ideation. Bed requested for Intensive Care Unit. Status is Inpatient Admission. Condition is Serious. Problem is new. Symptoms are unchanged. fc
[2019-12-29 18:32] LABS: ALT/SGPT 24 U/L (12-78); AST/SGOT 22 U/L (15-37); Albumin 3.7 g/dL (3.4-5.0); Alkaline Phosphatase 87 U/L (45-117); BUN Blood Urea Nitrogen 11 mg/dL (7-18); Bicarbonate 24 mmol/L (21-32); Bilirubin Direct 0.2 mg/dL (0-0.2); Bilirubin Total 0.7 mg/dL (0.2-1.0); Glucose Level 103 mg/dL (74-106); Protein, Total 7.8 g/dL (6.4-8.2); Sodium Level 139 mmol/L (136-145)
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
[2019-12-30] MEDS ORDERED: ACETAMINOPHEN 500 MG TAB PO PRN (00:10)
[2019-12-30] MEDS: NA CHLORIDE 0.9% 1,000 ML IV SCH ×2 (00:58→11:18)
[2019-12-30] MEDS: KCL 20 MEQ/100 mL IVPB 20 MEQ/100 ML BAG IV SCH ×2 (00:59→06:13)
[2019-12-30 03:31] VITALS: BMI 22.3
[2019-12-30 05:12] LABS: Absolute Lymphocytes (CBC) 1.8 K/uL (0.7-4.9); Basophils % 0.4 % (0-1.3); Hematocrit 36.3 % (39.6-49.0); Lymphocytes % 24.6 % (15.3-44.8); MPV 7.6 fL (7.6-11.3); RBC Red Blood Cell Count 3.82 M/uL (4.33-5.43)
[2019-12-30 05:55] LABS: BUN Blood Urea Nitrogen 9 mg/dL (7-18); Bicarbonate 27 mmol/L (21-32); Glucose Level 121 mg/dL (74-106); Magnesium 2.4 mg/dL (1.8-2.4); Sodium Level 142 mmol/L (136-145); Thyroid Stimulating Hormone 0.116 uIU/mL (0.360-3.740)
[2019-12-30] MEDS ORDERED: ENOXAPARIN 40 MG/0.4 ML SQ SCH (09:00)
--- NOTE | 2019-12-30 09:15 | EKG ---
Test Date: 2019-12-29 Test Time: 17:07:07 [employer] Cell Assembly Machine Tender: TIFFANY MEASUREMENT RESULTS: Intervals: Rate: 94 WY: 122 QRSD: 88 QT: 386 QTc: 482 [place]: P: 78 WY: 122 QRS: 77 T: 48 INTERPRETIVE STATEMENTS: Normal sinus rhythm Right atrial enlargement Nonspecific ST abnormality Prolonged QT Abnormal ECG Compared to ECG 11/27/2019 11:38:14 Atrial abnormality now present ST (T wave) deviation now present Prolonged QT interval now present Electronically Signed On 12-30-19 09:14:36 TELECOM ASSISTANT by Juan Daniel Scherer
--- NOTE | 2019-12-30 10:38 | P.PN ---
Subjective Date of Service: 12/30/19 Primary Care Provider: [facility] Chief Complaint: Suicide attempt Subjective: No new changes, Tolerating diet Review of Systems 10-point ROS is otherwise unremarkable Physical Examination - Vital Signs Temperature: 98.4 F Blood Pressure: 128/70 Pulse: 75 Respirations: 16 Pulse Ox (%): 98 - Physical Exam General: Alert, In no apparent distress, Oriented x3 HEENT: Atraumatic, Normocephalic Neck: Supple, 2+ carotid pulse no bruit Respiratory: Clear to auscultation bilaterally, Normal air movement Cardiovascular: No edema, Normal pulses, Regular rate/rhythm, Normal S1 S2 Gastrointestinal: Normal bowel sounds, Soft and benign, Non-distended Neurological: Normal speech, Normal strength at 5/5 x4 extr, Normal tone - Studies Laboratory Data (last 24 hrs) 12/29/19 17:37: PT 13.4 H, INR 1.14, APTT 24.9 12/29/19 17:37: WBC 12.4 H, Hgb 13.7, Hct 40.6, Plt Count 269 12/29/19 17:37: Sodium 139, Potassium 3.0 L, BUN 11, Creatinine 0.82, Glucose 103, Total Bilirubin 0.7, AST 22, ALT 24, Alkaline Phosphatase 87 Laboratory Last Values WBC 7.1 K/uL (4.3-10.9) D 12/30/19 05:02 RBC 3.82 M/uL (4.33-5.43) L 12/30/19 05:02 Hgb 12.4 g/dL (13.6-17.9) L 12/30/19 05:02 Hct 36.3 % (39.6-49.0) L 12/30/19 05:02 MCV 95.2 fL (80-100) 12/30/19 05:02 MCH 32.4 pg (27.0-35.0) 12/30/19 05:02 MCHC 34.0 g/dL (32.0-36.0) 12/30/19 05:02 RDW 14.7 % (12.1-15.2) 12/30/19 05:02 Plt Count 250 K/uL (152-406) 12/30/19 05:02 MPV 7.6 fL (7.6-11.3) 12/30/19 05:02 Neutrophils % 61.2 % (41.7-73.7) 12/30/19 05:02 Lymphocytes % 24.6 % (15.3-44.8) 12/30/19 05:02 Monocytes % 13.3 % (3.3-12.3) H 12/30/19 05:02 Eosinophils % 0.5 % (0-4.4) 12/30/19 05:02 Basophils % 0.4 % (0-1.3) 12/30/19 05:02 Absolute Neutrophils 4.4 K/uL (1.8-8.0) 12/30/19 05:02 Absolute Lymphocytes 1.8 K/uL (0.7-4.9) 12/30/19 05:02 Absolute Monocytes 0.9 K/uL (0.1-1.3) 12/30/19 05:02 Absolute Eosinophils 0.0 K/uL (0-0.5) 12/30/19 05:02 Absolute Basophils 0.0 K/uL (0-0.5) 12/30/19 05:02 PT 13.4 SECONDS (9.5-12.5) H 12/29/19 17:37 INR 1.14 12/29/19 17:37 APTT 24.9 SECONDS (24.3-36.9) 12/29/19 17:37 Sodium 142 mmol/L (136-145) 12/30/19 05:02 Potassium 3.0 mmol/L (3.5-5.1) L 12/30/19 05:02 Chloride 109 mmol/L (98-107) H 12/30/19 05:02 Carbon Dioxide 27 mmol/L (21-32) 12/30/19 05:02 BUN 9 mg/dL (7-18) 12/30/19 05:02 Creatinine 0.75 mg/dL (0.55-1.3) 12/30/19 05:02 Estimated GFR > 90 mL/min (=/>90) 12/30/19 05:02 Glucose 121 mg/dL (74-106) H 12/30/19 05:02 Calcium 8.0 mg/dL (8.5-10.1) L 12/30/19 05:02 Magnesium 2.4 mg/dL (1.8-2.4) 12/30/19 05:02 Total Bilirubin 0.7 mg/dL (0.2-1.0) 12/29/19 17:37 Direct Bilirubin 0.2 mg/dL (0-0.2) 12/29/19 17:37 AST 22 U/L (15-37) 12/29/19 17:37 ALT 24 U/L (12-78) 12/29/19 17:37 Alkaline Phosphatase 87 U/L (45-117) 12/29/19 17:37 Serum Total Protein 7.8 g/dL (6.4-8.2) 12/29/19 17:37 Albumin 3.7 g/dL (3.4-5.0) 12/29/19 17:37 Globulin 4.1 g/dL (2.3-3.5) H 12/29/19 17:37 Albumin/Globulin Ratio 0.9 (1.1-1.8) L 12/29/19 17:37 TSH 0.116 uIU/mL (0.360-3.740) L 12/30/19 05:02 Free T4 0.97 ng/dL (0.76-1.46) 12/30/19 05:02 Salicylates 5.3 mg/dL (2.8-20) 12/29/19 17:37 Acetaminophen < 2.0 ug/mL (10.0-30.0) L 12/29/19 17:37 Plasma/Serum Alcohol < 10 mg/dL (<10) 12/29/19 17:37 Assessment & Plan Discharge Plan: Psychiatry Plan to discharge in: 24 Hours Physician Review: Patient Assessed, Agree with Above Assessment and Plan Physician Review Additional Text: Suicidal attempt - with 55 tabs 100 mg trazodone -follow pysch eval today - may need inpatient pysch - c.w ativan prn - no cardiac changes on telemetry - will continue 1:1 observation Hypokalemia- will replate with 80 meq today DVT prop- scd
--- NOTE | 2019-12-30 10:43 | P.DS ---
Admission Date: 12/29/19 Discharge Date: 12/30/19 Primary Care Provider: [facility] Disposition: TRANSFR TO OTHER-PSY/CD/REHAB Discharge Condition: FAIR Reason for Admission: Suicide attempt Brief History of Present Illness: History of Present Illness: 44-year-old male with history of depression and anxiety with prior suicide attempt. Patient presented to the emergency room after he was brought in due to suicide attempt with trazodone overdose. The patient apparently took multiple pills of trazodone 100 mg. He reported taking 2 bottles. Total count was around 90 pills. Patient denied any significant nausea, vomiting. He was drowsy. No chest pain, shortness of breath noted. Patient was evaluated in the emergency room. Patient was stabilized. When I saw the patient ER, he was cooperative and stable. Patient admits history of suicide attempt. He also admits taking trazodone overdose. He reported that he Hated life". Patient is seen by psychiatry at the [facility]. Hospital Course: Patient's specific 8-year-old male with history of depression on admit at contact [facility] with 55 tabs 100 mg trazodone. On admission he was a bit hypokalemic which was repleted. He was monitored in the ICU on telemetry with no cardiac arrhythmia noted. He is tolerating p.o. well. Psych evaluation was obtained. Patient will be discharged per psych as he is medically cleared Vital Signs/Physical Exam: Temp Pulse Resp BP Pulse Ox 98.4 F 75 16 128/70 98 12/30/19 10:38 12/30/19 10:38 12/30/19 10:38 12/30/19 10:38 12/30/19 10:38 General: Alert, In no apparent distress, Oriented x3 HEENT: Atraumatic, Normocephalic, PERRLA Neck: 2+ carotid pulse no bruit, JVD not distended Respiratory: Clear to auscultation bilaterally, Normal air movement Cardiovascular: No edema, Normal pulses, Regular rate/rhythm, Normal S1 S2 Gastrointestinal: Normal bowel sounds, Soft and benign, Non-distended Musculoskeletal: No clubbing, No swelling Neurological: Normal speech, Normal strength at 5/5 x4 extr External genitalia: No edema, No lesions Laboratory Data at Discharge: WBC 7.1 K/uL (4.3-10.9) D 12/30/19 05:02 Hgb 12.4 g/dL (13.6-17.9) L 12/30/19 05:02 Hct 36.3 % (39.6-49.0) L 12/30/19 05:02 Plt Count 250 K/uL (152-406) 12/30/19 05:02 PT 13.4 SECONDS (9.5-12.5) H 12/29/19 17:37 INR 1.14 12/29/19 17:37 APTT 24.9 SECONDS (24.3-36.9) 12/29/19 17:37 Sodium 142 mmol/L (136-145) 12/30/19 05:02 Potassium 3.0 mmol/L (3.5-5.1) L 12/30/19 05:02 BUN 9 mg/dL (7-18) 12/30/19 05:02 Creatinine 0.75 mg/dL (0.55-1.3) 12/30/19 05:02 Glucose 121 mg/dL (74-106) H 12/30/19 05:02 Magnesium 2.4 mg/dL (1.8-2.4) 12/30/19 05:02 Total Bilirubin 0.7 mg/dL (0.2-1.0) 12/29/19 17:37 AST 22 U/L (15-37) 12/29/19 17:37 ALT 24 U/L (12-78) 12/29/19 17:37 Alkaline Phosphatase 87 U/L (45-117) 12/29/19 17:37 Home Medications: Potassium Chloride 10 meq PO DAILY #5 tablet.er 12/30/19 New Medications: Potassium Chloride 10 meq PO DAILY #5 tablet.er Diet: Regular Activity: Ad brigitte Time spent managing pt's care (in minutes): 35
[2019-12-30] MEDS: POTASSIUM CL SA 10 MEQ TAB PO SCH ×2 (11:13→13:40)
[2019-12-30 14:02] VITALS: O2SAT 97
[2019-12-30 15:21] LABS: BUN Blood Urea Nitrogen 5 mg/dL (7-18); Bicarbonate 28 mmol/L (21-32); Glucose Level 122 mg/dL (74-106); Potassium 3.6 mmol/L (3.5-5.1); Sodium Level 146 mmol/L (136-145)
[2019-12-30 18:13] VITALS: BP 147/91
[2019-12-30 18:14] VITALS: TEMP 97.7
[2019-12-30] MEDS ORDERED: RISPERIDONE 1 MG TABLET PO SCH (21:00)
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
[2019-12-31] MEDS ORDERED: NICOTINE 21 MG/PAT TD SCH (09:00)
[2019-12-31] MEDS ORDERED: VENLAFAXINE HCL 75 MG TABLET PO SCH (09:00)
== END 2019-12-30 18:50 ==
LOC: ER 16:58 → ERHOLD 18:28 → INTOOBSV 18:28 → 3RD-ICU 23:38
PROVIDERS: ADMIT Family Medicine; ATTEND Internal Medicine
DX: T43.212A Poisoning by selective serotonin and norepinephrine reuptake inhibitors, intentional self-harm, initial encounter (principal); E87.6 Hypokalemia; F12.90 Cannabis use, unspecified, uncomplicated; F14.10 Cocaine abuse, uncomplicated; F41.8 Other specified anxiety disorders; F32.9 Major depressive disorder, single episode, unspecified; F10.239 Alcohol dependence with withdrawal, unspecified; F17.210 Nicotine dependence, cigarettes, uncomplicated
CPT/HCPCS: 93005; 85025 ×2; 80048 ×3; 36415; 80320; 83735; 80329 ×2; 85610; 80076; 85730; 84443; 84439; 99285; J1650; J7030 ×3; G0378 ×2

== ENCOUNTER 2020-01-08 19:58 | Emergency (ER) | payer OTHER ==
--- OUTSIDE RECORDS SUMMARY | 2020-01-08 20:00 | XMS REPORT ---
:1975 [facility] [address] [place] [address] Care Team Providers Name Role Phone Unavailable Unavailable Unavailable Problems This patient has no known problems. Allergies, Adverse Reactions, Alerts This patient has no known allergies or adverse reactions. Medications This patient has no known medications. Results Test Description Test Time Test Comments Text Results Atomic Results Result Comments KNEE 3 VIEWS 2018-07-22 07:36:00 [place] [id number] IMAGING REPORTPatient Name: Cleo DOUGHERTY of Service: [id number]: 43 Sex: M Order #: [id number] Room: ERSDOB: 1975 X-Ray Number: [id number] Record Number: [id number] Hospital Number: [id number] Physician: Erna GUIDO Physician: Florina ENCISO knee.History: Pain.Technique: 3 views the right knee were reviewed.Findings:The right knee joint is intact. There is no fracture or bony malalignment.There is a significant sized joint effusion noted.Impression:Large right knee joint effusion.Electronically Signed By: Israel Ndiaye M.D., 07/22/2018 7:33 AMLegally authenticated by OSCAR Tolbert 2018-07-22 07:33:53 ABDOMEN 1 VIEW 2018-07-22 07:35:00 [place] [id number] IMAGING REPORTPatient Name: Cleo DOUGHERTY of Service: [id number]: 43 Sex: M Order #: [id number] Room: ERSDOB: 1975 X-Ray Number: [id number] Record Number: [id number] Hospital Number: [id number] Physician: Erna GUIDO Physician: KAYLA ENCISOUB:History: Abdomen [...] Tolbert 2018-07-22 07:32:58 ELBOW COMPLETE 2018-07-22 07:35:[address] [id number] IMAGING REPORTPatient Name: Cleo DOUGHERTY of Service: [id number]: 43 Sex: M Order #: [id number] Room: [facility] [place]: 1975 X-Ray Number: [id number] Record Number: [id number] Hospital Number: [id number] Physician: Erna GUIDO Physician: Florina ENCISO elbow.History: Pain.Technique: 4 views of right elbow were reviewed.Findings:The right elbow joint is intact without fracture. There is normalalignment. There is no obvious elbow joint effusion seen.Impression:Unremarkable right elbow views.Electronically Signed By: Israel Ndiaye M.D., 07/22/2018 7:33 AMLegally authenticated by OSCAR Tolbert 2018-07-22 07:33:23
[2020-01-08 20:56] LABS: Absolute Lymphocytes (CBC) 3.3 K/uL (0.7-4.9); Basophils % 1.1 % (0-1.3); Lymphocytes % 28.7 % (15.3-44.8); MPV 7.8 fL (7.6-11.3); RBC Red Blood Cell Count 4.23 M/uL (4.33-5.43)
[2020-01-08 21:04] LABS: Protime INR 1.13
[2020-01-08 21:36] LABS: ALT/SGPT 29 U/L (12-78); AST/SGOT 21 U/L (15-37); Albumin 3.6 g/dL (3.4-5.0); Alkaline Phosphatase 81 U/L (45-117); BUN Blood Urea Nitrogen 18 mg/dL (7-18); Bicarbonate 25 mmol/L (21-32); Bilirubin Direct 0.1 mg/dL (0-0.2); Bilirubin Total 0.4 mg/dL (0.2-1.0); Glucose Level 112 mg/dL (74-106); Potassium 3.6 mmol/L (3.5-5.1); Protein, Total 8.2 g/dL (6.4-8.2); Sodium Level 136 mmol/L (136-145)
[2020-01-08 22:25] LABS: Barbiturates NEGATIVE (NEGATIVE); Benzodiazepines NEGATIVE (NEGATIVE); Cocaine POSITIVE (NEGATIVE); METHAMPHETAM NEGATIVE (NEGATIVE); Methadone NEGATIVE (NEGATIVE); Opiates NEGATIVE (NEGATIVE); Phencyclidine NEGATIVE (NEGATIVE); THC Cannibis NEGATIVE (NEGATIVE)
[2020-01-09 00:38] LABS: Urine Blood NEGATIVE (NEG); Urine Glucose NEGATIVE (NEG); Urine Protein 1+ (NEG)
--- NOTE | 2020-01-09 02:29 | ER ---
Nurse's Notes [facility] Name: Justo Jain Age: 44 yrs Sex: Male : 1975 Arrival Date: 01/08/2020 Time: 20:01 Bed 5 Private MD: Diagnosis: Paranoid schizophrenia Presentation: 01/08 20:15 Presenting complaint: Mother states: "He has been like this for a while now and keeps lp1 saying people are following him; He gets like this when he's using"; Patient states people have been following him for the past 10 years and "no one believes me"; States having "one beer today"; Denies desire to harm self or others; States "I'm not crazy, I'm only here so they don't tell me I violated my parole". 20:15 Transition of care: patient was not received from another setting of care. Onset of lp1 symptoms was January 08, 2020. Risk Assessment: Do you want to hurt yourself or someone else? Patient reports no desire to harm self or others. Initial Sepsis Screen: Does the patient meet any 2 criteria? No. Patient's initial sepsis screen is negative. Does the patient have a suspected source of infection? No. Patient's initial sepsis screen is negative. Care prior to arrival: None. 20:15 Method Of Arrival: Ambulatory lp1 20:15 Acuity: TRAMAINE 2 lp1 Historical: - Allergies: 20:59 No Known Allergies; lp1 - Home Meds: 20:59 Risperdal 3 mg Oral tab 1 tab nightly [Active]; trazodone 100 mg Oral tab 2 tabs lp1 nightly [Active]; venlafaxine Oral [Active]; - PMHx: 20:59 Depression; R sided paralysis; Anxiety; Diabetes - NIDDM; lp1 - PSHx: 20:59 Neck surgery; lp1 - Immunization history:: Adult Immunizations up to date. - Coronavirus screen:: The patient has NOT traveled to [place] in the past 14 days. The patient has NOT had contact with known/suspected case of Coronavirus?. - Social history:: Smoking status: Patient reports the use of cigarette tobacco products, smokes one pack cigarettes per day. - Ebola Screening: : No symptoms or risks identified at this time. Screenin:01 Abuse screen: Denies threats or abuse. Denies injuries from another. Nutritional lp1 screening: No deficits noted. Tuberculosis screening: No symptoms or risk factors identified. Fall Risk None identified. Assessment: 20:20 General: Appears in no apparent distress. Behavior is cooperative, agitated. Pain: lp1 Denies pain. Neuro: Level of Consciousness is awake, alert, obeys commands, Oriented to person, place, time, situation, Paralysis in right arm(s) leg(s) Paralysis from previous injury. Cardiovascular: Patient's skin is warm and dry. Respiratory: Respiratory effort is even, unlabored. GI: No signs and/or symptoms were reported involving the gastrointestinal system. : No signs and/or symptoms were reported regarding the genitourinary system. EENT: No signs and/or symptoms were reported regarding the EENT system. Derm: Skin is intact, Skin is dry, Skin is normal. Musculoskeletal: Circulation, motion, and sensation intact. 20:35 Reassessment: Patient agitated with mother at bedside; "You just brought me here so you lp1 can ship me off somewhere, I knew I shouldn't have came here"; Mother asked to leave room due to patient agitation, mother demonstrates understanding. 22:07 Reassessment: Patient appears in no apparent distress at this time. Patient and/or lp1 family updated on plan of care and expected duration. Pain level reassessed. Patient resting, eyes closed, respirations unlabored. 22:30 Reassessment: contact numbers: Kristine Jain [phone], Tyree Jain [phone]. bb 23:00 Reassessment: Patient appears in no apparent distress at this time. No changes from 1 previously documented assessment. 23:59 Reassessment: [facility] at bedside to assess patient. lp1 01/09 00:45 Reassessment: Dr. Soto at bedside to discuss plan of care with patient; Okay to lp1 return patient's belongings to patient. 02:15 Reassessment: Patient's cousin at bedside to take patient home; Dr. Soto at bedside lp1 to discuss plan of care with patient;. General: Appears in no apparent distress. Behavior is calm, cooperative. Psych: 01/08 20:45 Subjective: Patient's mood is sad, Delusions are denied, Hallucinations are visual, lp1 suspected, Patient states feeling like people are following him "everywhere I go". Objective: Patient is cooperative, guarded, suspicious, Speech is normal, Affect is appropriate. Interventions: Removed personal items and placed in bag. Patient placed in hospital gown. Searched person for dangerous items. Safety Checks: Personal items have been removed. Belongings sent to security; Patient denies SI and HI Door is open. 20:45 Suicide Risk Assessment: Sad Person Scale: Sex of patient: Male: Score 1 point. Age of lp1 patient: Score 0 point if patient falls outside of specified age parameters. Depression: Score 0 point if signs of depression are not present. Previous Attempt: Score 1 point if patient has previously attempted suicide. Substance Abuse: Score 1 point if patient abuses alcohol or drugs. Rational Thinking: Score 1 point if patient is lacking rational thinking. Social Support: Score 0 if social support is present/available. Organized Plan: Score 0 if patient did not have an organized plan in place. Relationship: Score 1 point if patient is , , , or for a single male Chronic Sickness: Score 0 point if patient does not have a chronic illness, debilitating, or severe disorder. TOTAL POINTS: If total points are 5-6, proposed clinical action is to strongly consider hospitalization, depending upon confidence in the follow-up arrangement. Implement suicide precautions. Patient uses of beer, Patient uses cocaine, Last use was 1 days ago. Patient uses marijuana Last use was 1 days ago. Vital Signs: 20:15 BP 132 / 93; Pulse 96; Resp 18; Temp 98.2; Pulse Ox 98% on R/A; Weight 79.38 kg (R); lp1 Height 5 ft. 10 in. (177.80 cm); Pain 0/10; 22:07 BP 146 / 94; Pulse 88; Resp 18; Pulse Ox 98% on R/A; lp1 01/09 00:45 BP 147 / 92; Pulse 90; Resp 18; Pulse Ox 98% on R/A; lp1 01/08 20:15 Body Mass Index 25.11 (79.38 kg, 177.80 cm) lp1 ED Course: 01/08 20:01 Patient arrived in ED. es 20:03 Atul Soto MD is Attending Physician. kdr 20:15 Arm band placed on left wrist. lp1 20:40 Inserted saline lock: 20 gauge in left forearm, using aseptic technique. Blood lp1 collected. 20:45 Patient has correct armband on for positive identification. Placed in gown. Bed in low lp1 position. Call light in reach. 20:53 Elodia Antonio, RN is Primary Nurse. lp1 20:57 Triage completed. lp1 02 01:01 No provider procedures requiring assistance completed. lp1 01:30 IV discontinued, No redness/swelling at site. Pressure dressing applied. lp1 Administered Medications: No medications were administered Outcome: 02:28 AMA AMA form signed lp1 02:28 Condition: stable 02:28 Instructed on follow up and referral plans. 02:28 Patient left the ED. lp1 Signatures: Atul Soto MD MD kdr Salyer, Edna es Ballard, Brenda, RN RN Elodia Antonio, RN RN lp1
--- NOTE | 2020-01-09 02:30 | EDPHYS ---
Physician Documentation [facility] Name: Justo Jain Age: 44 yrs Sex: Male : 1975 Arrival Date: 01/08/2020 Time: 20:01 Bed 5 Private MD: ED Physician Atul Soto HPI: 01/08 20:52 This 44 yrs old Black Male presents to ER via Unassigned with complaints of Altered kdr Mental Status. 20:52 The patient presents with agitation. kdr 22:00 Onset: The symptoms/episode began/occurred at an unknown time. Possible causes: drug kdr use, marijuana, Etoh. Associated signs and symptoms: Pertinent positives: agitation, Pertinent negatives: abdominal pain, ataxia, blurred vision, chest pain, combativeness, confusion, diaphoresis, diarrhea, dizziness, headache, lightheadedness. Current symptoms: In the emergency department the patient's symptoms are unchanged from the initial presentation. Patient's baseline: Neuro: alert and fully oriented, Motor: no deficits, Ambulation: walks without assistance, Speech: normal, The patient has a previous history of chronic drug use, Overdose - trazadone. The patient has experienced similar episodes in the past, chronically. The patient has been recently seen by a physician: The patient has been recently been admitted at [facility], The patient was admitted to this facility a few days ago for a Trazodone overdose. Historical: - Allergies: 20:59 No Known Allergies; lp1 - Home Meds: 20:59 Risperdal 3 mg Oral tab 1 tab nightly [Active]; trazodone 100 mg Oral tab 2 tabs lp1 nightly [Active]; venlafaxine Oral [Active]; - PMHx: 20:59 Depression; R sided paralysis; Anxiety; Diabetes - NIDDM; lp1 - PSHx: 20:59 Neck surgery; lp1 - Immunization history:: Adult Immunizations up to date. - Coronavirus screen:: The patient has NOT traveled to [place] in the past 14 days. The patient has NOT had contact with known/suspected case of Coronavirus?. - Social history:: Smoking status: Patient reports the use of cigarette tobacco products, smokes one pack cigarettes per day. - Ebola Screening: : No symptoms or risks identified at this time. ROS: 22:00 Constitutional: Negative for fever, chills, and weight loss, Eyes: Negative for injury, kdr pain, redness, and discharge, ENT: Negative for injury, pain, and discharge, Neck: Negative for injury, pain, and swelling, Cardiovascular: Negative for chest pain, palpitations, and edema, Respiratory: Negative for shortness of breath, cough, wheezing, and pleuritic chest pain, Abdomen/GI: Negative for abdominal pain, nausea, vomiting, diarrhea, and constipation, Back: Negative for injury and pain, : Negative for injury, bleeding, discharge, and swelling, MS/Extremity: Negative for injury and deformity, Skin: Negative for injury, rash, and discoloration, Neuro: Negative for headache, weakness, numbness, tingling, and seizure activity. Allergy/Immunology: Negative for hives, rash, and allergies, Endocrine: Negative for neck swelling, polydipsia, polyuria, polyphagia, and marked weight changes, Hematologic/Lymphatic: Negative for swollen nodes, abnormal bleeding, and unusual bruising. 22:00 Psych: Positive for visual hallucinations, Paranoia, Negative for auditory hallucinations, homicidal ideation, suicide gesture, suicidal ideation. Exam: 22:00 Constitutional: This is a well developed, well nourished patient who is awake, alert, kdr and in no acute distress. Head/Face: Normocephalic, atraumatic. Eyes: Pupils equal round and reactive to light, extra-ocular motions intact. Lids and lashes normal. Conjunctiva and sclera are non-icteric and not injected. Cornea within normal limits. Periorbital areas with no swelling, redness, or edema. Neck: Trachea midline, no thyromegaly or masses palpated, and no cervical lymphadenopathy. Supple, full range of motion without nuchal rigidity, or vertebral point tenderness. No Meningismus. Chest/axilla: Normal chest wall appearance and motion. Nontender with no deformity. No lesions are appreciated. Cardiovascular: Regular rate and rhythm with a normal S1 and S2. No gallops, murmurs, or rubs. Normal PMI, no JVD. No pulse deficits. Respiratory: Lungs have equal breath sounds bilaterally, clear to auscultation and percussion. No rales, rhonchi or wheezes noted. No increased work of breathing, no retractions or nasal flaring. Abdomen/GI: Soft, non-tender, with normal bowel sounds. No distension or tympany. No guarding or rebound. No evidence of tenderness throughout. Back: No spinal tenderness. No costovertebral tenderness. Full range of motion. Skin: Warm, dry with normal turgor. Normal color with no rashes, no lesions, and no evidence of cellulitis. MS/ Extremity: Pulses equal, no cyanosis. Neurovascular intact. Full, normal range of motion. Neuro: Awake and alert, GCS 15, oriented to person, place, time, and situation. Cranial nerves II-XII grossly intact. Motor strength 5/5 in all extremities. Sensory grossly intact. Cerebellar exam normal. Normal gait. 22:00 Psych: Behavior/mood is pleasant, cooperative, depressed, Affect is flat, animated, Oriented to person, place, time, Patient has no thoughts/intents to harm self or others. Judgement / Insight is normal. Memory is normal. Delusions/hallucinations are present and described as Feels/see people following him. Vital Signs: 20:15 BP 132 / 93; Pulse 96; Resp 18; Temp 98.2; Pulse Ox 98% on R/A; Weight 79.38 kg (R); lp1 Height 5 ft. 10 in. (177.80 cm); Pain 0/10; 22:07 BP 146 / 94; Pulse 88; Resp 18; Pulse Ox 98% on R/A; lp1 01/09 00:45 BP 147 / 92; Pulse 90; Resp 18; Pulse Ox 98% on R/A; lp1 01/08 20:15 Body Mass Index 25.11 (79.38 kg, 177.80 cm) lp1 MDM: 01/08 22:00 Data reviewed: vital signs, nurses notes, lab test result(s). Counseling: I had a kdr detailed discussion with the patient and/or guardian regarding: the historical points, exam findings, and any diagnostic results supporting the discharge/admit diagnosis, lab results. 01/09 02:26 Patient medically screened. kdr 01/08 20:38 Order name: Acetaminophen kdr 01/08 20:38 Order name: Basic Metabolic Panel kdr 01/08 20:38 Order name: CBC with Diff kdr 01/08 20:38 Order name: ETOH Level kdr 01/08 20:38 Order name: Hepatic Function kdr 01/08 20:38 Order name: PT-INR kdr 01/08 20:38 Order name: Ptt, Activated [facility] 01/08 20:38 Order name: Salicylate [facility] 01/08 20:38 Order name: Urine Drug Screen [facility] 01/08 20:43 Order name: Glucose, Ancillary Testing; Complete Time: 21:38 EDNE 01/08 20:59 Order name: CBC with Automated Diff; Complete Time: 21:38 EDMS 01/08 21:05 Order name: Protime (+INR); Complete Time: 21:38 EDMS 01/08 21:05 Order name: PTT, Activated Partial Thromb; Complete Time: 21:38 EDMS 01/08 21:12 Order name: Salicylates Level; Complete Time: 21:38 EDNE 01/08 20:38 Order name: IV Saline Lock; Complete Time: 21:04 [facility] 01/08 20:38 Order name: Labs collected and sent; Complete Time: 21:04 [facility] 01/08 20:38 Order name: Urine Dipstick-Ancillary (obtain specimen); Complete Time: 21:57 [facility] 01/08 21:38 Order name: Basic Metabolic Panel; Complete Time: 22:00 EDMS 01/08 21:38 Order name: Liver (Hepatic) Function; Complete Time: 22:00 EDNE 01/08 21:38 Order name: Acetaminophen Level; Complete Time: 22:00 EDNE 01/08 21:38 Order name: Alcohol Serum/Plasma; Complete Time: 22:00 EDMS 01/08 22:14 Order name: Urine Dipstick--Ancillary (enter results) cm6 01/08 22:25 Order name: Urine Drug Screen; Complete Time: 23:36 EDMS 01/09 00:38 Order name: Urine Dipstick-Ancillary; Complete Time: 00:39 EDMS Administered Medications: No medications were administered Disposition: 01/09/20 02:26 Patient has left against medical advice. Impression: Paranoid schizophrenia. - Patients states they are going to Home. - Condition is Stable. - Discharge Instructions: Paranoia, Schizophrenia. Follow up: Private Physician; When: 1 - 2 days; Reason: If symptoms return, Further diagnostic work-up, Recheck today's complaints, Continuance of care, Re-evaluation by your physician. - Problem is an acute exacerbation. - Symptoms have improved. Signatures: Dispatcher [employer] [facility] Atul Soto MD MD [facility] Elodia Antonio RN RN lp1 Corrections: (The following items were deleted from the chart) 02:28 02:26 01/09/2020 02:26 Patients has left against medical advice. Impression: Paranoid lp1 schizophrenia. Patient states they are going to Home. Condition is Stable. Follow up: Private Physician; When: 1 - 2 days; Reason: If symptoms return, Further diagnostic work-up, Recheck today's complaints, Continuance of care, Re-evaluation by your physician. Problem is an acute exacerbation. Symptoms have improved. kdr
[2020-01-09 02:48] VITALS: TEMP 98.2; O2SAT 98
[2020-01-09 02:50] VITALS: BP 147/92
== END 2020-01-09 02:28 | disposition left against medical advice (07) ==
LOC: ER 19:58
DX: F20.0 Paranoid schizophrenia (principal); F41.8 Other specified anxiety disorders; E11.9 Type 2 diabetes mellitus without complications; F17.210 Nicotine dependence, cigarettes, uncomplicated
CPT/HCPCS: 36415; 80048; 80076; 80307; 80320; 80329; 81003; 82947; 85025; 85610; 85730; 99284